=== PATIENT | female | born 1985 | race African-American/Black ===

== ENCOUNTER 2021-06-29 14:51 | Emergency (ER) | payer BC, OTHER ==
[~2021-06-29] VITALS: Ht 157.5 cm; Wt 63.5 kg
--- NOTE | 2021-06-29 15:02 | NUR ---
PT FROM HOME C/O PELVIC AREA PAIN, NAUSEA SUDDEN ONSET X 1 HOUR . PT A/OX4. TOLERATING R/A WELL WITH NO SOB.
--- NOTE | 2021-06-29 15:10 | NUR ---
URINE COLLECTED AND SENT TO LAB
--- NOTE | 2021-06-29 15:11 | NUR ---
YUE LEWIS AT PT'S BEDSIDE
[2021-06-29] MEDS ORDERED: ONDANSETRON HCL/PF 4 MG/2 ML VIAL ONE (15:19)
[2021-06-29] MEDS ORDERED: ACETAMINOPHEN ES 500 MG TABLET ONE (15:19)
--- NOTE | 2021-06-29 15:24 | NUR ---
PELVIC EXAM DONE BY YUE LEWIS
[2021-06-29] MEDS ORDERED: IV NS 0.9% 1,000 ML BAG IV ONE (15:30)
[2021-06-29] MEDS ORDERED: ONDANSETRON HCL/PF 4 MG/2 ML VIAL IVP ONE (15:30)
[2021-06-29] MEDS ORDERED: ACETAMINOPHEN ES 500 MG TABLET PO ONE (15:30)
--- NOTE | 2021-06-29 15:33 | NUR ---
US TECH AT PT'S BEDSIDE
--- NOTE | 2021-06-29 16:08 | NUR ---
PT REFUSED IV & BLOOD DRAW AT THIS TIME. YUE LEWIS AWARE
[2021-06-29 16:09] LABS: BILIRUBIN,URINE NEGATIVE (NEGATIVE); COLOR,URINE YELLOW (YELLOW); LEUKOCYTE ESTERASE ,URINE NEGATIVE (NEGATIVE); NITRITE, URINE NEGATIVE (NEGATIVE); PROTEIN,URINE TRACE mg/dl (NEGATIVE); UGLUCOSE NEGATIVE (NEGATIVE); UROBILINOGEN,URINE 0.2 EU/dL (0.2)
[2021-06-29 16:13] LABS: BACTERIA,URINE Few /HPF (None Seen); MUCUS,URINE Moderate /LPF (None Seen); RBC,URINE 0-2 /HPF (0-2); SQUAMOUS EPITHELIAL CELL,UR Few /HPF (None Seen); WBC,URINE 0-2 /HPF (0-3)
--- NOTE | 2021-06-29 16:41 | NUR ---
[employer] HELPER AT PT'S BEDSIDE
[2021-06-29 17:09] LABS: BASOPHILS % (AUTO) 0.5 % (0.0-2.0); EOSINOPHILS % (AUTO) 0.4 % (0.0-6.0); HEMATOCRIT 39 % (33-45); HEMOGLOBIN 12.3 g/dL (11.5-14.8); LYMPHOCYTES # (AUTO) 0.9 K/uL (0.8-4.8); LYMPHOCYTES % (AUTO) 13.3 % (20.0-44.0); MEAN CORPUSCULAR HGB CONC 32 g/dl (31.0-36.0); MEAN CORPUSCULAR VOLUME 79 fL (82-100); MONOCYTES # (AUTO) 0.4 K/uL (0.1-1.30); MONOCYTES % (AUTO) 5.4 % (2.0-12.0); NEUTROPHILS # (AUTO) 5.3 K/uL (1.8-8.9); NEUTROPHILS % (AUTO) 80.4 % (43.0-81.0); PLATELET COUNT (AUTO) 254 K/uL (150-450); RED BLOOD CELL COUNT(AUTO) 4.96 MIL/uL (4.0-5.2); WHITE BLOOD COUNT (AUTO) 6.6 K/uL (4.3-11.0)
[2021-06-29 17:24] LABS: CALCIUM, SERUM 8.6 mg/dL (8.5-10.1); CREATININE 0.8 mg/dL (0.6-1.3); POTASSIUM 3.9 mmol/L (3.5-5.1)
[2021-06-29 17:29] LABS: ALBUMIN 3.7 g/dL (3.4-5.0); BILIRUBIN,TOTAL 0.1 mg/dL (0.2-1.0); TOTAL PROTEIN, SERUM 7.9 g/dL (6.4-8.2)
--- NOTE | 2021-06-29 17:35 | NUR ---
CALLED DR. VILLEGAS
[2021-06-29] MEDS ORDERED: ONDA4TAB5 PO (17:50)
[2021-06-29] MEDS ORDERED: IBUP-1955 PO (17:50)
[2021-06-29] MEDS ORDERED: HYDR-4303 PO (17:50)
[2021-06-29 17:56] VITALS: BP 115/77
--- NOTE | 2021-06-29 18:33 | NUR ---
Patient discharged to home in stable condition. Written and verbal after care instructions given. Patient verbalizes understanding of instruction. PT ambulatory with a steady gait. IV DC WITH NO ACTIVE BLEEDING.
== END 2021-06-29 18:34 | disposition home or self-care (01) ==
LOC: ER 14:56
DX: N83.201 Unspecified ovarian cyst, right side (principal); D25.9 Leiomyoma of uterus, unspecified; F41.9 Anxiety disorder, unspecified; Z98.890 Other specified postprocedural states; Z60.2 Problems related to living alone
CPT/HCPCS: 36415; 76856; 80048; 80076; 81001; 84703; 85025; 87491; 87591; 96360; 96361; 99284; J7030; J2405